=== PATIENT | female | born 1985 | race Caucasian/White ===

== ENCOUNTER 2024-06-26 05:44 | Day surgery (SDC) | payer OTHER, SELFPAY ==
[2024-06-26] VITALS (8 sets, daily range): BP systolic 113–127; BP diastolic 66–89; PULSE 64–95; RESP 16–24; TEMP 36.1–36.8; O2SAT 99–100; BMI 27.0
[2024-06-26] MEDS: Lactated Ringers 1,000 ML 15 ML IV (06:32)
--- NOTE | 2024-06-26 06:48 | PRE.ANES_ITS ---
ASA Classification* ASA Classification ASA Classification: 2 Assessment & Plan Anesthesia* Anesthesia Assessment Anesthesia Assessment: Discussed sedation and/or anesthesia options, risks, benefits, and alternatives with patient/parents/legal guardian/POA. Questions invited. The patient/parents/legal guardian/POA seems to understand and agrees to proceed with anesthesia plan. Reviewed the physical assessment, medical history, allergy history and patient home medications list prior to surgery/procedure/anesthetic and documented any changes. Performed airway and anesthesia risk assessments. Anesthesia Type Anesthesia Type: General Anesthesia Focused Assessment* Temperature: 98.1 F Pulse Rate: 64 Blood Pressure: 113/78 Respiratory Rate: 16 Pulse Ox: 100 Airway Assessment Mouth opens: >3 cm Mallampati Score: II Focused Labs Anesthesia Preop lab: CBC CHEMISTRY COAG Urine Test Pending 06/26/24 06:10 Pre-Assessment Diagnosis/Proposed Procedure Planned Operative Procedure(s): EXCISION GROIN HYDRADENITIS BILAT WITH ALLOGRAFT PLACEMENT Anesthesia History Anesthesia History - sterile technician: Anesthesia History - sterile technician Hx Hospitalization No 06/06/24 10:09 Any Problems With Anesthesia No 06/06/24 10:09 Cholinesterase deficiency No 06/06/24 10:09 You/Your Family Experience No 06/06/24 10:09 fever (hyperthermia) with Relationship Recent Exposure to Contagious No 06/26/24 06:23 Disease Does patient have nerve No 06/06/24 10:09 stimulator Patient instructed to have device shut off --Does patient have Pacemaker No 06/26/24 06:23 or ICD? When Was Last Pacemaker Check QUESTION #4 FULL TEXT: You/Your Family Experience fever (hyperthermia) with Anesthesia Last Oral Intake Last Oral intake: Last Oral Intake NPO since 00:00 06/26/24 06:23 Meds taken in AM with sips of water? Meds patient instructed to take am of surgery PONV PONV - sterile technician: PONV - sterile technician Female Yes 06/06/24 10:09 HX of Motion Sickness No 06/06/24 10:09 HX of N/V After Surgery No 06/06/24 10:09 Non-Smoker Yes 06/06/24 10:09 Duration of Surgery greater Yes 06/06/24 10:09 than 60 minutes Number of Risk Factors 3 06/06/24 10:09 PONV Score Moderate Risk 06/06/24 10:09 Height & Weight Height & Weight: Anesthesia: Height & Weight Height 5 ft 9 in 06/26/24 06:23 Weight: 83.007 kg 06/26/24 06:23 Body Mass Index (BMI) 27.0 06/26/24 06:23 Respiratory Assessment Respiratory Assessment - sterile technician: Respiratory Tract Infection Hx - sterile technician Hx Respiratory Tract Infection No 06/06/24 10:09 STOP Sleep Apnea STOP Sleep Apnea - sterile technician: STOP Sleep Apnea - sterile technician Hx Hypertension No 06/06/24 10:09 Hx Sleep Apnea No 06/06/24 10:09 CPAP BIPAP Do you snore loudly (louder Yes 06/06/24 10:09 than talking or can be heard Do you often feel tired/ No 06/06/24 10:09 fatigued/ sleepy during daytime? Has anyone observed you stop No 06/06/24 10:09 breathing during sleep? STOP Results Negative 06/06/24 10:09 QUESTION #5 FULL TEXT : Do you snore loudly (louder than talking or can be heard through closed doors)? Tobacco Use History Tobacco Use History - sterile technician: Tobacco Use History - sterile technician Tobacco Use Smoking Status Never smoker 06/06/24 10:09 Hx Tobacco Use No 06/06/24 10:09 Years Smoking Packs Smoked per Day Smoking Cessation Date was within the last 15 years Hx Smoking Cessation Date Hx Smoking Cessation Counseling Hematologic Medial History Hematologic Hx - sterile technician: Hematologic Medical Hx - wealth management manager Hx of Blood Transfusion No 06/06/24 10:09 Hx of Transfusion in last 3 No 06/06/24 10:09 Months Date of Last Transfusion (if within last 3 months) Ever experience any problems No 06/06/24 10:09 with transfusion(s)? Specify any problems Hx of Preganancy in last 3 No 06/06/24 10:09 Months Nurse Filling Out Transfusion DSCHRIBER 06/06/24 10:09 & Questions: Date: 06/06/24 06/06/24 10:09 Time: 10:10 06/06/24 10:09 Patient unable to answer at this time (ie. confused, unrespo /Reproduction History /Reproductive History - sterile technician: /Reproductive Hx- sterile technician Hx Now No 06/06/24 10:09 Gestational Age (in weeks): EDC: Hx Hx Para Hx Section SAB No 06/06/24 10:09 Active Medications Active Medications: Current Medications Generic Name Dose Route Start Last Admin Trade Name Freq PRN Reason Stop Dose Admin Cefazolin Sodium 2 gm/ N/A 20 mls @ 400 mls/hr 06/26/24 07:30 IV 06/26/24 07:32 PREOP ONE Lactated Ringer's 1,000 mls @ 15 mls/hr 06/26/24 06:15 06/26/24 06:32 IV 07/01/24 19:34 15 mls/hr .Q48H MOSES Administration Protocol ON LICENSE OF [facility] Medical History Psoriasis Alcohol use Back pain Non-smoker Hx of hidradenitis suppurativa Home Medications ?Medication ?Instructions ?Recorded ?Last Taken ?Type secukinumab 300 mg/2 mL (150 300 mg subcut QMONTH 04/25/24 Unknown History mg/mL) subcutaneous pen injector (Cosentyx UnoReady Pen) triprolidine HCl 2.5 mg tablet 2.5 mg PO PRN PRN ALLERGIES 04/25/24 Unknown History (Flonase Nighttime Allergy Relief) Allergy/AdvReac Type Severity Reaction Status Date / Time adhesive tape (tape) Allergy Mild Itching Verified 06/26/24 06:21 Family History Father Cancer High cholesterol Grandmother Cancer Mother Hypertension Surgical History Hx of hammer toe correction Social History Smoking Status: Never smoker alcohol intake: current substance use type: does not use additional social history: denies vaping, denies marijuana use, denies edibles, denies history blood clotting disorder denies aspirin use uses ibuprofen as needed Review of Systems (Anesthesia) ROS Narrative System reviewed and no additional complaints, except as documented.
[2024-06-26 06:54] LABS: Internal QC Validated? YES +Cl - CLEAR BKGD; Pregnancy, Urine Negative Negative; Record Kit Lot#,Urine Preg 869294
--- NOTE | 2024-06-26 07:30 | HID_PTH ---
PATIENT: SYDNEE JOH[place]ON [place] [facility] [id number] AGE/SX: 39/F ROOM: RE06/26/[address]: Dr. Sushil Guthrie MD : 1985 BED: DIS: 06/26/2024 SPEC #: [id number] RECD: 06/26/24 13:24 STATUS: SASHA BRITTANY #: [id number] GEO: 06/26/24 07:[address]: Sushil Guthrie DEPT: SURGICAL PATHOLOGY RECD BY: Floyd Hernandez ENTERED: 06/26/24 14:40 SP TYPE: Sarahradenit ROSIE DR: No Primary Care Phys Tissues: A - Inguinal region, NOS B - Inguinal region, NOS C - Inguinal region, NOS Procedures: Surgery Specimen Level IV HEADER OPERATION: Excision groin hidradenitis bilateral with allograft placement PRE-OP DIAGNOSIS: Hidradenitis suppurativa TISSUE SUBMITTED: A- Right groin hidradenitis, B- Left groin hidradenitis, C- Left groin hidradenitis- inferior MICROSCOPIC DIAGNOSIS A. Right groin hidradenitis, excision: Skin with underlying tissue with acute and chronic inflammation, granulation tissue reaction and follicular cyst formation, consistent with hidradenitis. B. Left groin hidradenitis, excision: A piece of skin with underlying tissue with acute and chronic inflammation, follicular cyst formation, consistent with hidradenitis. C. Left groin hidradenitis inferior, excision: A piece of skin with underlying tissue with acute and chronic inflammation, follicular cyst formation, consistent with hidradenitis. 06/27/2024 MICROSCOPIC DESCRIPTION Slides are reviewed. GROSS DESCRIPTION A. Received in fixative is one container labeled with the patient's name and designated Right groin hidradenitis. The specimen consists of a piece of morales-white skin with underlying tissue measuring 5.0 x 1.7 x 1.0cm. Sections do not reveal any mass lesions. Credit Verification Clerk sections are submitted in two cassettes. B. Received in fixative is one container labeled with the patient's name and designated Left groin hidradenitis. The specimen consists of a piece of skin with underlying tissue measuring 3.0 x 1.0cm and up to 1.5cm in thickness. The specimen is bisected and submitted entirely in one cassette. C. Received in fixative is one container labeled with the patient's name and designated Left groin hidradenitis -inferior. The specimen consists of a piece of skin with underlying tissue measuring 2.2 x 1.0cm and up to 0.6cm in thickness. The skin piece is serially sectioned. Also present in the container is a piece of adipose tissue measuring 1.0 x 0.3 x 0.2cm. The entire specimen is submitted in one cassette. SJ 06/26/2024 TC:3 CPT:44721p5
--- NOTE | 2024-06-26 07:34 | OP.PCM_ITS ---
Problems Associated Problem List Diagnoses (1) Hidradenitis suppurativa: Operative Report (Standard) Operative Information Surgery/Procedure Performed: 1) Right groin/thigh hidradenitis suppurativa excision, 6.5 x 2 cm (CPT: 03850) 2) Left groin/thigh hidradenitis suppurativa excision, 3 x 1.5 cm (26952) 3) Left groin/thigh hidradenitis suppurativa excision, 4 x 1.5 cm (74420) 4) Placement of dermal substitute, 23.5 cm^2 (CPT 06302) Surgeon: Sushil Guthrie Date of Procedure: 06/26/24 Procedure Start Time: 08:15 Procedure Stop Time: 08:47 Pre-Operative Diagnosis: hidradenitis suppurativa (HS) bilateral groin/thigh Post-Operative Diagnosis: Same Select all DRAINS/GRAFTS/IMPLANTS that apply: Tissue (Allograft ) Tissue details: [employer]osource [place] (REF [id number], LOT [id number]) Cryopreserved. 28 May 2027 exp. Type of Anesthesia: General/Supplemental (30 cc of 0.25% Marcaine with 1:200,000 epinephrine) Estimated Blood Loss: 5 cc Fluids Replaced: 800 cc Specimen collected: Yes Description of specimen(s) removed: HS excisions for examination for pathology, as well as cultures from the tracts on both sides. Description of surgery: Indications: Sarah Canela is a 39-year-old female who has been dealing with hidradenitis suppurativa (HS) for which medical management has been exhausted (she has been on Cosentyx and following regularly with the dermatology group in [facility]). Shee was referred to me for excision of persistent Azul grade 2 sinus tracts in her groin that are painful. She understood the risks, benefits, and alternatives to the procedure and wanted to proceed with excision of the hidradenitis with placement of a dermal substitute. Procedure details: Patient was correctly identified in preoperative holding and the lesions were marked with a female inspecting machine adjuster present. The patient and I identified the specific areas of concern in the right groin ( 1) and in the left groin (2). These areas were marked specifically for excision. The patient was then taken back to the operating room where she was administered general anesthesia and placed in the lithotomy position and prepped and draped in sterile fashion. A timeout was performed. The elliptical areas of planned excision were anesthetized with 30 cc of 0.25% Marcaine with 1-200,000 epinephrine. This was given time to take effect, and then a 10 blade scalpel was used to excise the skin around the HS tracts and scars. There was fluid oozing from the central sinuses and a hemostat was used to enter the sinuses to get the proper plane so as to provide a full-thickness excision of the HS but preserve the underlying deep nerves and lymphatics in the deeper plane that was not involved. Once the full-thickness excision with a scalpel and Bovie was performed, these areas, which included the sinus tracts and fluid, were sent to pathology. The bases of the wounds were cultured and separate right and left cultures were sent. The wounds were then irrigated with copious amounts of normal saline as well as Irrisept. Hemostasis was obtained with Bovie electrocautery. The total excisions were right groin 6.5 x 2 cm, left groin 4 x 1.5 cm, and left groin 3 x 1.5 cm. We then placed allograft (which was meshed) into the wound beds and sutured it with 4-0 Chromic Gut suture. This was a total dermal substitute placement of 23-1/2 cm?. Xeroform Kerlix and mesh panties were then applied and the patient was awakened and taken the PACU in stable condition. Postoperative plan: She will continue wet-to-dry dressings over the allograft for the next 1 to 2 weeks and then the allograft will be removed in clinic. The allograft was for initial pain control and to allow sufficient drainage. Follow-up cultures. I will see her in the wound care center on Sunday, 30 June 2024. Surgical Findings: 3 separate areas of hidradenitis with tracts and scars and purulent drainage. Hotel Recreational Facilities Manager cotton bag sewer: Yes Molded Rubber Goods Cutter: Wesley Wallace Tasks completed by first crusher: Closing and Retracting Complications Complications: No Admit VTE Documentation VTE Mechan Device Prophylaxis: SCD's
--- NOTE | 2024-06-26 07:34 | HP.PCM.SX_ITS ---
HPI - General HPI Narrative Sarah Canela is a 38-year-old female who is otherwise healthy and has hidradenitis suppurativa (HS). She was referred to me by the [facility] dermatology team for evaluation of surgical management. She has been taking Cosentyx (secukinumab) for medical management of the HS, for which she just finished a 5-week course for the loading dose, and is now on her monthly dosing. She noted a 50% improvement with the Cosentyx as far. She is not on any chronic suppressive antibiotics. She does not smoke The patient reports that they do not have any personal or family history of bleeding or clotting disorders. She does not take any medicines every day. She is quite active and does serious gravel road cycling 3 times per week with her . Of note when she was living in [place] her PHYSICAL MEDICINE TEACHER performed 3 separate incision and drainage procedures of labial hidradenitis with significant improvement thereafter. CURRENT ENCOUNTER, 30 May 2024: Patient reports that she has been compliant with her Cosentyx and continues to follow with dermatology for medical management. She has persistent inguinal/groin hidradenitis that she would like treated. It continues to drain. She is an avid cyclist and is ready to do surgery as the cycling season is no longer is busy. 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 Current Encounter (DATE OF SURGERY H&P UPDATE): I saw and examined the patient this morning in pre-operative holding. We marked the areas of concern together and were in agreement. I showed her the planned incisoins. We discussed risks and benefits of today's surgery and they would like to proceed. NO CHANGE in health history since last seen and evaluated. Ready to proceed with surgery. [facility] Medical History Psoriasis Alcohol use Back pain Non-smoker Hx of hidradenitis suppurativa Home Medications ?Medication ?Instructions ?Recorded ?Last Taken ?Type secukinumab 300 mg/2 mL (150 300 mg subcut QMONTH 04/25/24 Unknown History mg/mL) subcutaneous pen injector (Cosentyx UnoReady Pen) triprolidine HCl 2.5 mg tablet 2.5 mg PO PRN PRN ALLERGIES 04/25/24 Unknown History (Flonase Nighttime Allergy Relief) Allergy/AdvReac Type Severity Reaction Status Date / Time adhesive tape (tape) Allergy Mild Itching Verified 06/26/24 06:21 Family History Father Cancer High cholesterol Grandmother Cancer Mother Hypertension Surgical History Hx of hammer toe correction Social History Smoking Status: Never smoker alcohol intake: current substance use type: does not use additional social history: denies vaping, denies marijuana use, denies edibles, denies history blood clotting disorder denies aspirin use uses ibuprofen as needed Vital Signs Vital Signs Vital Signs: 06/26/24 06:23 06/26/24 06:23 06/26/24 06:48 Temperature 98.1 F 98.1 F Temperature Source Temporal Pulse Rate 64 64 Respiratory Rate 16 16 Respiratory Pattern Normal Blood Pressure 113/78 113/78 Blood Pressure Mean 89 Blood Pressure Source Monitor Blood Pressure Position Semi-Fowlers Blood Pressure Location Left Arm Pulse Ox 100 100 Oxygen Delivery Method Room Air Weight Weight: 183 lb Body Mass Index (BMI) 27.0 Physical Exam Narrative Draining sinuses 2/2 HS in right groin/medial thigh x 1 and left groin/medial thigh x 2 Female oyster culler present during our marking The sinuses were draining. Const oriented x3 and no apparent distress Results Lab / Micro Data Labs: Laboratory Results - last 24 hr 06/26/24 06:10: Urine Test Negative Assessment & Plan Assessment/Plan (1) Hidradenitis suppurativa: PLAN: Today I again talked the patient extensively about the risks of surgery, including bleeding, infection, poor scaring/contracture and pull of the scar on her labia/vulva leading to issues, damage to surrounding structures (lymphedema 2/2 lymphatic injury, nerve pain or numbness 2/2 nerve transection), surgical site dehiscence and wound formation, need for wound care (placement of allograft after the surgery with dressing changes over top), need for repeat operations, failure to obtain the desired result, DVT/PE (Caprini score is 3), and the risks of anesthesia including . The benefits and alternatives of this surgery were also discussed. All of their questions were answered, and they agreed to proceed with surgery. All questions answered. Plan for excision of bilateral groin hydradenitis with allograft placement.
[2024-06-26] MEDS: Cefazolin 2 GM in Syringe IV (07:45)
[2024-06-26] MEDS: Bupiv/Epi 0.25% 30 ML Vial (08:29)
--- NOTE | 2024-06-26 08:56 | PCM.POST.ANE ---
Anesthesia: Postop Eval I Current Vital Signs Temperature: 97 F Pulse Rate: 90 Blood Pressure: 127/89 Respiratory Rate: 16 Pulse Ox: 99 Oxygen Delivery Method: Room Air Assessment Airway patent: Yes Spontaneous unlabored respirations: Yes Mental status: Awake and Calm nausea: No Vomiting: No Anesthesia Complication: No Fluid Hydration Crystalloid volume administer (ml): 800 Total IV fluid infused: 800 Progress Note Anesthesia document: Postop Eval 1 completed: Yes
--- NOTE | 2024-06-26 15:14 | POSTOPAN2_ITS ---
Anesthesia Postop Eval I Sum Postop Eval Completion status Anesthesia document: Postop Eval 1 completed: Yes Anesthesia Postop Eval I Summary Anesthesia Postop Eval I Summary: Anesthesia Postop Eval I: Assessment Summary Airway patent Yes 06/26/24 08:57 ROCKET PROPELLANT PLANT SUPERVISOR.MDOT Spontaneous unlabored Yes 06/26/24 08:57 ROCKET PROPELLANT PLANT SUPERVISOR.MDOT respirations Mental status Awake,Calm 06/26/24 08:57 ROCKET PROPELLANT PLANT SUPERVISOR.MDOT nausea No 06/26/24 08:57 ROCKET PROPELLANT PLANT SUPERVISOR.MDOT Vomiting No 06/26/24 08:57 ROCKET PROPELLANT PLANT SUPERVISOR.MDOT Anesthesia Postop Eval I: Fluid Summary Crystalloid volume administer 800 06/26/24 08:57 ROCKET PROPELLANT PLANT SUPERVISOR.MDOT (ml) Colloids volume administered ( ml) Blood Product volume administered (ml) Total IV fluid infused 800 06/26/24 08:57 ROCKET PROPELLANT PLANT SUPERVISOR.MDOT Anesthesia Postop Eval I: Summary Notes Anesthesia Complication No 06/26/24 08:57 ROCKET PROPELLANT PLANT SUPERVISOR.MDOT Anesthesia Complication Comment: Post-operative progress note Anesthesia: Postop Eval II Evaluation Mental status: Awake and Calm Pain Level: 1 nausea: No Vomiting: No Complications Anesthesia Complication: No
--- NOTE | 2024-06-26 15:14 | PCM.POSTANE2 ---
Anesthesia Postop Eval I Sum Postop Eval Completion status Anesthesia document: Postop Eval 1 completed: Yes Anesthesia Postop Eval I Summary Anesthesia Postop Eval I Summary: Anesthesia Postop Eval I: Assessment Summary Airway patent Yes 06/26/24 08:57 KITCHEN STEWARD/[email or web address] Spontaneous unlabored Yes 06/26/24 08:57 KITCHEN STEWARD/STEWARDESS.MDOT respirations Mental status Awake,Calm 06/26/24 08:57 KITCHEN STEWARD/[email or web address].MDOT nausea No 06/26/24 08:57 KITCHEN STEWARD/STEWARDESS.MDOT Vomiting No 06/26/24 08:57 KITCHEN STEWARD/[email or web address].MDOT Anesthesia Postop Eval I: Fluid Summary Crystalloid volume administer 800 06/26/24 08:57 KITCHEN STEWARD/[email or web address].MDOT (ml) Colloids volume administered ( ml) Blood Product volume administered (ml) Total IV fluid infused 800 06/26/24 08:57 KITCHEN STEWARD/[email or web address].MDOT Anesthesia Postop Eval I: Summary Notes Anesthesia Complication No 06/26/24 08:57 KITCHEN STEWARD/[email or web address].MDOT Anesthesia Complication Comment: Post-operative progress note Anesthesia: Postop Eval II Evaluation Mental status: Awake and Calm Pain Level: 1 nausea: No Vomiting: No Complications Anesthesia Complication: No
== END 2024-06-26 10:18 | disposition home or self-care (01) ==
LOC: SDC 05:44 → AC 05:46
PROVIDERS: Anesthesiology; Referring Provider Surgery Plastic and Reconstructive Surgery; Visit Provider Surgery Plastic and Reconstructive Surgery
PROC: (CPT 11462; principal; 2024-06-26 07:15)
DX: L73.2 Hidradenitis suppurativa (principal)
CPT/HCPCS: 11462; 15271; 81025; 87070; 87075; 87077; 87186; 87205; 88305; J7120; J2405

== ENCOUNTER 2024-06-30 13:12 | Outpatient (RCR) | payer OTHER, SELFPAY ==
[2024-06-30 13:25] VITALS: BP 111/56; PULSE 67; RESP 18; TEMP 36.5; BMI 26.6
--- NOTE | 2024-06-30 14:31 | PCM.WC.PN ---
History of Present Illness Date of Service: 06/30/24 Subjective Subjective Doing well post-operatively (POD 5) Pain controlled. Complaint with dressing changes over the allograft. No drainage. Feels better. 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 Beefy red granulation between fenestrations in the sutured allograft. No signs of infection, no induration. Healing well. No ttp Const alert and oriented x3 Debridement Note Debridement Note Post-Debridement Measurements and Additional Note: Post-Debridement Measurements/Treatment - Nurse 1 - General Ulcer Assessment Start: 06/30/24 13:25 Freq: Status: Active Protocol: ADAL.DIOGENES Activity Type Activity Date Activity User E-sign Co-sign Detail Recorded Client Recorded Date Recorded By Document 06/30/24 13:25 [facility] [id number] 06/30/24 13:39 [facility] 06/30/24 13:25 - Today's Visit Information Type of service Initial Visit Arrival Mode Ambulatory Patient Identification Verified (Name & Yes ) Height and Weight Height 5 ft 9 in Weight 180 lb Weight in Pounds 180.0 lbs Weight Measurement Method Estimated by Patient Body Mass Index (BMI) 26.6 BMI Classification Overweight BSA - Marla 1.98 Vital Signs Temperature (97.8 F-99.1 F) 97.7 F L Temperature Source Temporal Pulse Rate (60-100) 67 Pulse Location Monitor Respiratory Rate (12-18) 18 Respiratory rate source Observation Oxygen Delivery Method Room Air Blood Pressure (90/60-120/80) 111/56 L Blood Pressure Mean (mm Hg) 74 Source Monitor Position Semi-Fowlers Blood Pressure Location Left Arm History Since Last Visit- (Skip if this is Patient's initial visit) Left Footwear Regular Shoe Right Footwear Regular Shoe Pain Scale: 0-10 Numeric Is Patient Pain Free? No groin -Description Aching -Alleviating Factors/Interventions Medication WC - Nurse 1 - General Ulcer Measurement Start: 06/30/24 13:25 Freq: Status: Active Protocol: Activity Type Activity Date Activity User E-sign Co-sign Detail Recorded Client Recorded Date Recorded By Document 06/30/24 13:25 [facility] [id number] 06/30/24 13:39 [facility] 06/30/24 13:25 Wound Center Nurse 1 #3 LT LAT GROIN -Current Size (cm) - Length 3.4 -Current Size (cm) - Width 0.5 -Current Size (cm) - Depth 0.3 -Total Square Cm 1.70 -Date of Last Picture (Recall this 06/30/24 field) -Exudate Amt Small -Exudate Type Serosanguineous -Wound Margin Distinct, Outline Attached -Granulation Amt Large (67-100%) -Granulation Quality Red -Texture (Betty-wound Skin Appearance) Assessed -Moisture (Betty-wound Skin Appearance) Assessed -Color (Betty-wound Skin Appearance) Assessed -Temperature (Betty-wound Skin No Abnormality Appearance) (Pt Warm) -Tenderness on Palpation (Betty-wound No Skin Appearance) -Ulcer Cleansing Soap and Water -Foul Odor after Cleansing No -Anesthetic Used 5% Lidocaine Gel #2 LT MED GROIN -Current Size (cm) - Length 1.5 -Current Size (cm) - Width 1.1 -Current Size (cm) - Depth 0.2 -Total Square Cm 1.65 -Date of Last Picture (Recall this 06/30/24 field) -Exudate Amt Small -Exudate Type Serosanguineous -Wound Margin Distinct, Outline Attached -Granulation Amt Large (67-100%) -Granulation Quality Red -Texture (Betty-wound Skin Appearance) Assessed -Moisture (Betty-wound Skin Appearance) Assessed -Color (Betty-wound Skin Appearance) Assessed -Temperature (Betty-wound Skin No Abnormality Appearance) (Pt Warm) -Tenderness on Palpation (Betty-wound No Skin Appearance) -Ulcer Cleansing Soap and Water -Foul Odor after Cleansing No -Anesthetic Used 5% Lidocaine Gel #1 RT GROIN -Current Size (cm) - Length 6 -Current Size (cm) - Width 0.1 -Current Size (cm) - Depth 0.2 -Total Square Cm 0.6 -Date of Last Picture (Recall this 06/30/24 field) -Exudate Amt Small -Exudate Type Serosanguineous -Wound Margin Distinct, Outline Attached -Granulation Amt Large (67-100%) -Granulation Quality Red -Texture (Betty-wound Skin Appearance) Assessed -Moisture (Betty-wound Skin Appearance) Assessed -Color (Betty-wound Skin Appearance) Assessed -Temperature (Betty-wound Skin No Abnormality Appearance) (Pt Warm) -Tenderness on Palpation (Betty-wound No Skin Appearance) -Ulcer Cleansing Soap and Water -Foul Odor after Cleansing No -Anesthetic Used 5% Lidocaine Gel WC - Nurse 2 - General Ulcer CM Notes Start: 06/30/24 13:25 Freq: Status: Active Protocol: Activity Type Activity Date Activity User E-sign Co-sign Detail Recorded Client Recorded Date Recorded By Document 06/30/24 13:56 [id number] 06/30/24 13:58 LOGAN 06/30/24 13:56 Wound Center Nurse 2 #3 LT LAT GROIN -Correct Patient No -Correct Side, Site, Position No -Correct Procedure No -Procedure Performed No -Wound/Ulcer Outcome Not Healed #2 LT MED GROIN -Correct Patient No -Correct Side, Site, Position No -Correct Procedure No -Procedure Performed No -Wound/Ulcer Outcome Not Healed #1 RT GROIN -Correct Patient No -Correct Side, Site, Position No -Correct Procedure No -Procedure Performed No -Wound/Ulcer Outcome Not Healed Pain Scale: 0-10 Numeric Is Patient Pain Free? Yes Assessment/Plan Assessment/Plan (1) Hidradenitis suppurativa: CODE(S): L73.2 - Hidradenitis suppurativa PLAN: Doing well Plan to remove allograft next week in clinic and continue Aquacel Ag over the wounds daily for now Multiple organisms seen in cultures, including anaerobes. Susceptible to ampicillin Prescribed course of Augmentin. No concerns today clinically for infection, however. F/u in 1 week
--- NOTE | 2024-07-01 11:11 | WC ---
PHOTO 06/30/24 RIGHT CATHIIN
--- NOTE | 2024-07-01 11:12 | WC ---
PHOTO 07/01/24 LEFT LATERAL GROIN
--- NOTE | 2024-07-01 11:15 | WC ---
PHOTO 06/30/24 Frederick SOTO
== END 2024-07-05 23:59 | disposition home or self-care (01) ==
LOC: WC 13:12
PROVIDERS: Referring Provider Surgery Plastic and Reconstructive Surgery; Visit Provider Surgery Plastic and Reconstructive Surgery
DX: L73.2 Hidradenitis suppurativa (principal); Z79.899 Other long term (current) drug therapy
CPT/HCPCS: 99213; G0463

== ENCOUNTER 2024-07-28 14:00 | Outpatient (RCR) | payer OTHER, SELFPAY ==
[2024-07-06 00:34] VITALS: BP 111/56; PULSE 67; RESP 18; TEMP 36.5; BMI 26.6
[2024-07-07 10:36] VITALS: BP 123/85; PULSE 75; RESP 18; TEMP 36.2; BMI 26.6
--- NOTE | 2024-07-07 13:38 | PN.PCM_ITS ---
<Statement entered by Sushil Guthrie MD - 07/08/24 06:50> I have personally performed a face to face assessment of the patient and have reviewed the KASSI Note.
--- NOTE | 2024-07-07 13:38 | PCM.WC.PN ---
History of Present Illness Date of Service: 07/07/24 Chief Complaint: Bilateral groin/proximal thigh wounds from hidradenitis excision History of Wound: 39 -year-old female who is otherwise healthy and has hidradenitis suppurativa (HS). She was referred to me by the [facility] dermatology team for evaluation of surgical management. She has been taking Cosentyx (secukinumab) for medical management of the HS, for which she just finished a 5-week course for the loading dose, and is now on her monthly dosing. She noted a 50% improvement with the Cosentyx as far. She is not on any chronic suppressive antibiotics. Of note when she was living in [place] her SECURITY MESSENGER performed 3 separate incision and drainage procedures of labial hidradenitis with significant improvement thereafter. Surgery 06/26/24 Right groin/thigh hidradenitis suppurativa excision, 6.5 x 2 cm and Left groin/thigh hidradenitis suppurativa excision, 3 x 1.5 cm and Left groin/thigh hidradenitis suppurativa excision, 4 x 1.5 cm and Placement of dermal substitute, 23.5 cm^2. She denies any fever, chill, nausea or vomiting. Progress of Wound: She states her pain is well controlled. She has been having some drainage from the wound on the right groin/thigh. She denies issues with her dressing changes. Objective Data Objective Data Vital Signs: Vital Signs Temp Pulse Resp BP O2 Del Method 97.2 F L 75 18 123/85 H Room Air 07/07/24 10:36 07/07/24 10:36 07/07/24 10:36 07/07/24 10:36 07/07/24 10:36 Oxygen Delivery Method Room Air Weight: 180 lb Body Mass Index (BMI) 26.6 Charges/Coding Procedures Integumentary 111xxx-113xx: 53384 Global Visit Physical Exam Narrative Removed the allograft today. Wounds are nice beefy pink color. Decreased depth. Betty wound is clear. Debridement Note Debridement Note Wound debrided: Right groin, Left groin medial and lateral wounds Wound Grade/Stage: Stage 3 Type of Debridement: Excisional debridement Anesthesia Used: 5% Lidocaine Gel and Cetacaine Depth: Down to and including healthy tissue and in the subcutaneous layer Percentage of wound debrided: 100 Instrument Used: 5mm curette and Forceps (scissors) Tissue Removed: Non viable tissue and slough. Removed remaining allograft. Severity: Fat Layer Exposed Amount of bleeding with debridement: Mild Bleeding Controlled with: Pressure and Compression and gauze Patient tolerated procedure: Patient tolerated procedure well Post-Debridement Measurements and Additional Note: Post-Debridement Measurements/Treatment - Nurse 1 - General Ulcer Assessment Start: 07/07/24 10:36 Freq: Status: Active Protocol: XIN Activity Type Activity Date Activity User E-sign Co-sign Detail Recorded Client Recorded Date Recorded By Document 07/07/24 10:36 KW [id number] 07/07/24 10:54 KW 07/07/24 10:36 WC - Today's Visit Information Type of service Follow-up Visit (Physician/CHICKEN VACCINATOR ) Arrival Mode Ambulatory Patient Identification Verified (Name & Yes ) Height and Weight Body Mass Index (BMI) 26.6 BMI Classification Overweight Vital Signs Temperature (97.8 F-99.1 F) 97.2 F L Temperature Source Temporal Pulse Rate (60-100) 75 Pulse Location Monitor Respiratory Rate (12-18) 18 Respiratory rate source Observation Oxygen Delivery Method Room Air Blood Pressure (90/60-120/80) 123/85 H Blood Pressure Mean (mm Hg) 97 Source Monitor Position Semi-Fowlers Blood Pressure Location Left Arm History Since Last Visit- (Skip if this is Patient's initial visit) Have you changed medications since your No last visit? Any new allergies or adverse reactions No Had a fall/change in ADL's that may No increase risk of falls Signs or symptoms of abuse and/or No neglect since last visit Have you been in the hospital since your No last visit? Has dressing in place as prescribed Yes Has compression in place as prescribed N/A Has offloadiing in place as prescribed N/A Experienced any changes in pain level or No management Left Footwear Regular Shoe Right Footwear Regular Shoe Pain Scale: 0-10 Numeric Is Patient Pain Free? Yes - Nurse 1 - General Ulcer Measurement Start: 07/07/24 10:36 Freq: Status: Active Protocol: Activity Type Activity Date Activity User E-sign Co-sign Detail Recorded Client Recorded Date Recorded By Document 07/07/24 10:36 KW [id number] 07/07/24 10:54 KW 07/07/24 10:36 Wound Center Nurse 1 #3 LT LAT GROIN -Current Size (cm) - Length 3.3 -Current Size (cm) - Width 1 -Current Size (cm) - Depth 0.4 -Total Square Cm 3.3 -Date of Last Picture (Recall this 07/07/24 field) -Exudate Amt Small -Exudate Type Serosanguineous -Wound Margin Distinct, Outline Attached -Granulation Amt Medium (34-66%) -Granulation Quality Red -Necrosis Amt Medium (34-66%) -Necrotic Tissue Type Adherent Slough -Texture (Betty-wound Skin Appearance) Assessed -Moisture (Betty-wound Skin Appearance) Assessed -Color (Betty-wound Skin Appearance) Assessed -Temperature (Betty-wound Skin No Abnormality Appearance) (Pt Warm) -Tenderness on Palpation (Betty-wound No Skin Appearance) -Ulcer Cleansing Soap and Water -Foul Odor after Cleansing No -Anesthetic Used 5% Lidocaine Gel #2 LT MED GROIN -Current Size (cm) - Length 1.7 -Current Size (cm) - Width 0.8 -Current Size (cm) - Depth 0.4 -Total Square Cm 1.36 -Date of Last Picture (Recall this 07/07/24 field) -Exudate Amt Small -Exudate Type Serosanguineous -Wound Margin Distinct, Outline Attached -Granulation Amt Large (67-100%) -Granulation Quality Red -Necrosis Amt Small (1-33%) -Necrotic Tissue Type Adherent Slough -Texture (Betty-wound Skin Appearance) Assessed -Moisture (Betty-wound Skin Appearance) Assessed -Color (Betty-wound Skin Appearance) Assessed -Temperature (Betty-wound Skin No Abnormality Appearance) (Pt Warm) -Tenderness on Palpation (Betty-wound No Skin Appearance) -Ulcer Cleansing Soap and Water -Foul Odor after Cleansing No -Anesthetic Used 5% Lidocaine Gel #1 RT GROIN -Current Size (cm) - Length 5 -Current Size (cm) - Width 1 -Current Size (cm) - Depth 0.4 -Total Square Cm 5 -Date of Last Picture (Recall this 07/07/24 field) -Exudate Amt Small -Exudate Type Serosanguineous -Wound Margin Distinct, Outline Attached -Granulation Amt Small (1-33%) -Granulation Quality Red -Necrosis Amt Large (67-100%) -Necrotic Tissue Type Adherent Slough -Texture (Betty-wound Skin Appearance) Assessed -Moisture (Betty-wound Skin Appearance) Assessed -Color (Betty-wound Skin Appearance) Assessed -Temperature (Betty-wound Skin No Abnormality Appearance) (Pt Warm) -Tenderness on Palpation (Betty-wound No Skin Appearance) -Ulcer Cleansing Soap and Water -Foul Odor after Cleansing No -Anesthetic Used 5% Lidocaine Gel WC - Nurse 2 - General Ulcer CM Notes Start: 07/07/24 10:36 Freq: Status: Active Protocol: Activity Type Activity Date Activity User E-sign Co-sign Detail Recorded Client Recorded Date Recorded By Document 07/07/24 11:03 LOGAN [id number] 07/07/24 11:10 LOGAN 07/07/24 11:03 Wound Center Nurse 2 #3 LT LAT GROIN -Time 11:04 -Correct Patient Yes -Correct Side, Site, Position Yes -Correct Procedure Yes -Procedure Performed Yes -Type of Procedure Debridement -Clinical Debridement Subcutaneous -Tissue Removed Subcutaneous -Post Debridement (cm) - Length 3.0 -Post Debridement (cm) - Width 1.2 -Post Debridement (cm) - Depth 0.2 -Total Square (Post) (cm) 3.60 -Area of Debridement (cm) - Length 3.0 -Area of Debridement (cm) - Width 1.2 -Total Square (Area) (cm) 3.60 -Tunneling No -Undermining/Tunneling No -Circular Undermining No -Wound/Ulcer Outcome Not Healed -Ulcer Cleansing Rinsed/ Irrigated with Saline -Foul Odor after Cleansing No -Bioengineered Tissue No -Bleeding Controlled with Pressure -Treatment Response Procedure Tolerated Well -Offloading No -Debridement - Subq, 1st 20sq cm No #2 LT MED GROIN -Time 11:04 -Correct Patient Yes -Correct Side, Site, Position Yes -Correct Procedure Yes -Procedure Performed Yes -Type of Procedure Debridement -Clinical Debridement Subcutaneous -Tissue Removed Subcutaneous -Post Debridement (cm) - Length 2.0 -Post Debridement (cm) - Width 1.4 -Post Debridement (cm) - Depth 0.4 -Total Square (Post) (cm) 2.80 -Area of Debridement (cm) - Length 2.0 -Area of Debridement (cm) - Width 1.4 -Total Square (Area) (cm) 2.80 -Tunneling No -Undermining/Tunneling No -Circular Undermining No -Wound/Ulcer Outcome Not Healed -Ulcer Cleansing Rinsed/ Irrigated with Saline -Foul Odor after Cleansing No -Bioengineered Tissue No -Bleeding Controlled with Pressure -Treatment Response Procedure Tolerated Well -Offloading No -Debridement - Subq, 1st 20sq cm No #1 RT GROIN -Time 11:07 -Correct Patient Yes -Correct Side, Site, Position Yes -Correct Procedure Yes -Procedure Performed Yes -Type of Procedure Debridement -Clinical Debridement Subcutaneous -Tissue Removed Subcutaneous -Post Debridement (cm) - Length 5.0 -Post Debridement (cm) - Width 1.5 -Post Debridement (cm) - Depth 0.3 -Total Square (Post) (cm) 7.50 -Area of Debridement (cm) - Length 5.0 -Area of Debridement (cm) - Width 1.5 -Total Square (Area) (cm) 7.50 -Tunneling No -Undermining/Tunneling No -Circular Undermining No -Wound/Ulcer Outcome Not Healed -Ulcer Cleansing Rinsed/ Irrigated with Saline -Foul Odor after Cleansing No -Bioengineered Tissue No -Bleeding Controlled with Pressure -Treatment Response Procedure Tolerated Well -Offloading No -Debridement - Subq, 1st 20sq cm Yes Pain Scale: 0-10 Numeric Is Patient Pain Free? Yes - Nurse 3 - General Ulcer D/C NN Start: 07/07/24 10:36 Freq: Status: Active Protocol: Activity Type Activity Date Activity User E-sign Co-sign Detail Recorded Client Recorded Date Recorded By Document 07/07/24 11:31 [id number] 07/07/24 11:31 07/07/24 11:31 Wound Care Center Nurse 3 #3 LT LAT GROIN -Primary Dressing Applied Aquacel AG 4x4 -Primary Dressing Covered/Secured with Dry Gauze -Aquacel AG 4x4 1 #2 LT MED GROIN -Other Dressing aquacel ag -Primary Dressing Covered/Secured with Dry Gauze #1 RT GROIN -Other Dressing aquacel ag -Primary Dressing Covered/Secured with Dry Gauze Pain Scale: 0-10 Numeric Is Patient Pain Free? Yes Assessment/Plan Assessment/Plan (1) Hidradenitis suppurativa: CODE(S): L73.2 - Hidradenitis suppurativa (2) Delayed surgical wound healing: CODE(S): T81.89XA - Other complications of procedures, not elsewhere classified, initial encounter PLAN: Plan She states she is doing well. Pain is controlled. Wound care - Aquacel-Ag daily and as needed covered with gauze. Wash the area daily with soap and water. Multiple organisms seen in cultures, including anaerobes. Susceptible to ampicillin. She completes the Augmentin today. Discussed plan of care with Dr. Guthrie. F/u in [address] Guthrie.
--- NOTE | 2024-07-08 15:03 | WC ---
PHOTO 07/07/24 RIGHT GROIN POST OP
--- NOTE | 2024-07-08 15:05 | WC ---
PHOTO 07/07/24 LEFT [facility] GROIN POST OP
--- NOTE | 2024-07-08 15:07 | WC ---
PHOTO 07/07/24 LT GROIN LATERAL POST OP
[2024-07-14 15:14] VITALS: BP 129/76; PULSE 67; RESP 15; TEMP 36.6; BMI 26.6
--- NOTE | 2024-07-14 17:12 | PCM.WC.PN ---
History of Present Illness Date of Service: 07/14/24 Chief Complaint: Bilateral groin/proximal thigh wounds from hidradenitis excision History of Wound: 39 -year-old female who is otherwise healthy and has hidradenitis suppurativa (HS). She was referred to me by the [facility] dermatology team for evaluation of surgical management. She has been taking Cosentyx (secukinumab) for medical management of the HS, for which she just finished a 5-week course for the loading dose, and is now on her monthly dosing. She noted a 50% improvement with the Cosentyx as far. She is not on any chronic suppressive antibiotics. Of note when she was living in [place] her TECHNICAL DEVELOPER performed 3 separate incision and drainage procedures of labial hidradenitis with significant improvement thereafter. Surgery 06/26/24 Right groin/thigh hidradenitis suppurativa excision, 6.5 x 2 cm and Left groin/thigh hidradenitis suppurativa excision, 3 x 1.5 cm and Left groin/thigh hidradenitis suppurativa excision, 4 x 1.5 cm and Placement of dermal substitute, 23.5 cm^2. She denies any fever, chill, nausea or vomiting. Progress of Wound: She states her pain is well controlled. She has been having some drainage from the wound on the right groin/thigh. She denies issues with her dressing changes. Current Encounter, 14 Jul 2024: Doing well. Pain controlled since removal of the allograft. no drainage. Finished Abx. Happy she went through with the surgery Objective Data Objective Data Vital Signs: Vital Signs Temp Pulse Resp BP O2 Del Method 98 F 67 15 129/76 H Room Air 07/14/24 15:14 07/14/24 15:14 07/14/24 15:14 07/14/24 15:14 07/14/24 15:14 Oxygen Delivery Method Room Air Weight: 180 lb Body Mass Index (BMI) 26.6 Charges/Coding Procedures Integumentary 111xxx-113xx: [id number] Lauryn subq tissue 20 sq cm/< Physical Exam Narrative Wounds with beefy red base. Right groin is 1.5 x 4.5 cm , left lateral is 1.5 x 3 cm , and left medial is 1 x 1 cm. No drainage. No new HS lesions. Wounds are nice beefy pink color. Decreased depth. Debridement Note Debridement Note Wound debrided: Bilateral groin/medial thigh Laterality: Not Applicable Type of Debridement: Excisional debridement Anesthesia Used: 4% Lidocaine Solution Depth: Down to and including healthy tissue and in the subcutaneous layer Percentage of wound debrided: 100 Instrument Used: 5mm curette Severity: Fat Layer Exposed Bleeding Controlled with: Pressure Patient tolerated procedure: Patient tolerated procedure well Post-Debridement Measurements and Additional Note: Post-Debridement Measurements/Treatment - Nurse 1 - General Ulcer Assessment Start: 07/07/24 10:36 Freq: Status: Active Protocol: [employer] Activity Type Activity Date Activity User E-sign Co-sign Detail Recorded Client Recorded Date Recorded By Document 07/07/24 10:36 KW [id number] 07/07/24 10:54 KW Document 07/14/24 15:14 BM [id number] 07/14/24 15:22 BM 07/07/24 07/14/24 10:36 15:14 - Today's Visit Information Type of service Follow-up Visit Follow-up Visit (Physician/PROFESSOR OF MUSICOLOGY (Physician/PROFESSOR OF MUSICOLOGY ) ) Arrival Mode Ambulatory Ambulatory Transfer Assistance None Patient Identification Verified (Name & Yes Yes ) Patient Requires Transmission-Based No Precautions Height and Weight Body Mass Index (BMI) 26.6 26.6 BMI Classification Overweight Overweight Vital Signs Temperature (97.8 F-99.1 F) 97.2 F L 98 F Temperature Source Temporal Temporal Pulse Rate (60-100) 75 67 Pulse Location Monitor Monitor Respiratory Rate (12-18) 18 15 Respiratory rate source Observation Observation Oxygen Delivery Method Room Air Room Air Blood Pressure (90/60-120/80) 123/85 H 129/76 H Blood Pressure Mean (mm Hg) 97 93 Source Monitor Monitor Position Semi-Fowlers Sitting Blood Pressure Location Left Arm Right Arm History Since Last Visit- (Skip if this is Patient's initial visit) Have you changed medications since your No No last visit? Any new allergies or adverse reactions No No Had a fall/change in ADL's that may No No increase risk of falls Signs or symptoms of abuse and/or No neglect since last visit Have you been in the hospital since your No last visit? Has dressing in place as prescribed Yes Has compression in place as prescribed N/A Has offloadiing in place as prescribed N/A Experienced any changes in pain level or No management Left Footwear Regular Shoe Right Footwear Regular Shoe Pain Scale: 0-10 Numeric Is Patient Pain Free? Yes Yes WC - Nurse 1 - General Ulcer Measurement Start: 07/07/24 10:36 Freq: Status: Active Protocol: Activity Type Activity Date Activity User E-sign Co-sign Detail Recorded Client Recorded Date Recorded By Document 07/07/24 10:36 KW [id number] 07/07/24 10:54 KW Document 07/14/24 15:14 [email or web address] [id number] 07/14/24 15:22 BM 07/07/24 07/14/24 10:36 15:14 Wound Center Nurse 1 #3 LT LAT GROIN -Current Size (cm) - Length 3.3 4.6 -Current Size (cm) - Width 1 1.2 -Current Size (cm) - Depth 0.4 0.2 -Total Square Cm 3.3 5.52 -Date of Last Picture (Recall this 07/07/24 field) -Epithelialization Medium 34-66% -Exudate Amt Small Medium -Exudate Type Serosanguineous Serosanguineous -Wound Margin Distinct, Outline Attached -Granulation Amt Medium (34-66%) Medium (34-66%) -Granulation Quality Red -Necrosis Amt Medium (34-66%) Small (1-33%) -Necrotic Tissue Type Adherent Slough Adherent Slough -Texture (Betty-wound Skin Appearance) Assessed Assessed -Moisture (Betty-wound Skin Appearance) Assessed Assessed -Color (Betty-wound Skin Appearance) Assessed Assessed -Temperature (Betty-wound Skin No Abnormality No Abnormality Appearance) (Pt Warm) (Pt Warm) -Tenderness on Palpation (Betty-wound No No Skin Appearance) -Ulcer Cleansing Soap and Water Soap and Water -Foul Odor after Cleansing No No -Anesthetic Used 5% Lidocaine 5% Lidocaine Gel Gel #2 LT MED GROIN -Current Size (cm) - Length 1.7 1.2 -Current Size (cm) - Width 0.8 0.6 -Current Size (cm) - Depth 0.4 0.1 -Total Square Cm 1.36 0.72 -Date of Last Picture (Recall this 07/07/24 field) -Exudate Amt Small Medium -Exudate Type Serosanguineous Serosanguineous -Wound Margin Distinct, Distinct, Outline Outline Attached Attached -Granulation Amt Large (67-100%) Medium (34-66%) -Granulation Quality Red -Slough/Fibrin Yes -Necrosis Amt Small (1-33%) Medium (34-66%) -Necrotic Tissue Type Adherent Slough Eschar -Texture (Betty-wound Skin Appearance) Assessed Assessed -Moisture (Betty-wound Skin Appearance) Assessed Assessed -Color (Betty-wound Skin Appearance) Assessed Assessed -Temperature (Betty-wound Skin No Abnormality No Abnormality Appearance) (Pt Warm) (Pt Warm) -Tenderness on Palpation (Betty-wound No No Skin Appearance) -Ulcer Cleansing Soap and Water Soap and Water -Foul Odor after Cleansing No No -Anesthetic Used 5% Lidocaine 5% Lidocaine Gel Gel #1 RT GROIN -Current Size (cm) - Length 5 4.6 -Current Size (cm) - Width 1 1.2 -Current Size (cm) - Depth 0.4 0.2 -Total Square Cm 5 5.52 -Date of Last Picture (Recall this 07/07/24 field) -Epithelialization Medium 34-66% -Exudate Amt Small Medium -Exudate Type Serosanguineous Serosanguineous -Wound Margin Distinct, Distinct, Outline Outline Attached Attached -Granulation Amt Small (1-33%) Medium (34-66%) -Granulation Quality Red -Slough/Fibrin Yes -Necrosis Amt Large (67-100%) Medium (34-66%) -Necrotic Tissue Type Adherent Slough Adherent Slough -Texture (Betty-wound Skin Appearance) Assessed Assessed -Moisture (Betty-wound Skin Appearance) Assessed Assessed -Color (Betty-wound Skin Appearance) Assessed Assessed -Temperature (Betty-wound Skin No Abnormality No Abnormality Appearance) (Pt Warm) (Pt Warm) -Tenderness on Palpation (Betty-wound No No Skin Appearance) -Ulcer Cleansing Soap and Water Soap and Water -Foul Odor after Cleansing No No -Anesthetic Used 5% Lidocaine 5% Lidocaine Gel Gel WC - Nurse 2 - General Ulcer CM Notes Start: 07/07/24 10:36 Freq: Status: Active Protocol: Activity Type Activity Date Activity User E-sign Co-sign Detail Recorded Client Recorded Date Recorded By Document 07/07/24 11:03 LOGAN [id number] 07/07/24 11:10 Document 07/14/24 15:40 [id number] 07/14/24 15:45 07/07/24 07/14/24 11:03 15:40 Wound Center Nurse 2 #3 LT LAT GROIN -Time 11: 15:40 -Correct Patient Yes Yes -Correct Side, Site, Position Yes Yes -Correct Procedure Yes Yes -Procedure Performed Yes Yes -Type of Procedure Debridement Debridement -Clinical Debridement Subcutaneous Subcutaneous -Tissue Removed Subcutaneous Subcutaneous -Post Debridement (cm) - Length 3.0 1.5 -Post Debridement (cm) - Width 1.2 3 -Post Debridement (cm) - Depth 0.2 0.2 -Total Square (Post) (cm) 3.60 4.5 -Area of Debridement (cm) - Length 3.0 1.5 -Area of Debridement (cm) - Width 1.2 3 -Total Square (Area) (cm) 3.60 4.5 -Tunneling No No -Undermining/Tunneling No No -Circular Undermining No No -Wound/Ulcer Outcome Not Healed Not Healed -Ulcer Cleansing Rinsed/ Rinsed/ Irrigated with Irrigated with Saline Saline -Foul Odor after Cleansing No No -Bioengineered Tissue No No -Bleeding Controlled with Pressure Pressure -Treatment Response Procedure Procedure Tolerated Well Tolerated Well -Offloading No No -Debridement - Subq, 1st 20sq cm No No #2 LT MED GROIN -Time 11: 15:41 -Correct Patient Yes Yes -Correct Side, Site, Position Yes Yes -Correct Procedure Yes Yes -Procedure Performed Yes Yes -Type of Procedure Debridement Debridement -Clinical Debridement Subcutaneous Subcutaneous -Tissue Removed Subcutaneous Subcutaneous -Post Debridement (cm) - Length 2.0 1.0 -Post Debridement (cm) - Width 1.4 1.0 -Post Debridement (cm) - Depth 0.4 0.2 -Total Square (Post) (cm) 2.80 1.00 -Area of Debridement (cm) - Length 2.0 1.0 -Area of Debridement (cm) - Width 1.4 1.0 -Total Square (Area) (cm) 2.80 1.00 -Tunneling No No -Undermining/Tunneling No No -Circular Undermining No No -Wound/Ulcer Outcome Not Healed Not Healed -Ulcer Cleansing Rinsed/ Rinsed/ Irrigated with Irrigated with Saline Saline -Foul Odor after Cleansing No No -Bioengineered Tissue No No -Bleeding Controlled with Pressure Pressure -Treatment Response Procedure Procedure Tolerated Well Tolerated Well -Offloading No No -Debridement - Subq, 1st 20sq cm No No #1 RT GROIN -Time 11:07 15:41 -Correct Patient Yes Yes -Correct Side, Site, Position Yes Yes -Correct Procedure Yes Yes -Procedure Performed Yes Yes -Type of Procedure Debridement Debridement -Clinical Debridement Subcutaneous Subcutaneous -Tissue Removed Subcutaneous Subcutaneous -Post Debridement (cm) - Length 5.0 1.5 -Post Debridement (cm) - Width 1.5 4.5 -Post Debridement (cm) - Depth 0.3 0.2 -Total Square (Post) (cm) 7.50 6.75 -Area of Debridement (cm) - Length 5.0 1.5 -Area of Debridement (cm) - Width 1.5 4.5 -Total Square (Area) (cm) 7.50 6.75 -Tunneling No No -Undermining/Tunneling No No -Circular Undermining No No -Wound/Ulcer Outcome Not Healed Not Healed -Ulcer Cleansing Rinsed/ Rinsed/ Irrigated with Irrigated with Saline Saline -Foul Odor after Cleansing No No -Bioengineered Tissue No No -Bleeding Controlled with Pressure Pressure -Treatment Response Procedure Procedure Tolerated Well Tolerated Well -Offloading No No -Debridement - Subq, 1st 20sq cm Yes Yes Pain Scale: 0-10 Numeric Is Patient Pain Free? Yes Yes - Nurse 3 - General Ulcer D/C NN Start: 07/07/24 10:36 Freq: Status: Active Protocol: Activity Type Activity Date Activity User E-sign Co-sign Detail Recorded Client Recorded Date Recorded By Document 07/07/24 11:31 KW [id number] 07/07/24 11:31 KW Document 07/14/24 15:58 DL [id number] 07/14/24 16:01 DL 07/07/24 07/14/24 11:31 15:58 Wound Care Center Nurse 3 #3 LT LAT GROIN -Ulcer Cleansing Soap and Water -Foul Odor after Cleansing No -Primary Dressing Applied Aquacel AG 4x4 Aquacel AG 4x4 -Primary Dressing Covered/Secured with Dry Gauze Dry Gauze, Secured with Tape -Aquacel AG 4x4 1 1 #2 LT MED GROIN -Ulcer Cleansing Rinsed/ Irrigated with Saline -Foul Odor after Cleansing No -Other Dressing aquacel ag aquacel AG -Primary Dressing Covered/Secured with Dry Gauze Dry Gauze, Secured with Tape #1 RT GROIN -Ulcer Cleansing Soap and Water -Foul Odor after Cleansing No -Other Dressing aquacel ag Aquacel AG -Primary Dressing Covered/Secured with Dry Gauze Dry Gauze, Secured with Tape Treatment Response Procedure Tolerated Well Pain Scale: 0-10 Numeric Is Patient Pain Free? Yes Yes WC - Visit Discharge Discharge Condition Stable Ambulatory Status Ambulatory Transportation Private Auto Assessment/Plan Assessment/Plan (1) Hidradenitis suppurativa: CODE(S): L73.2 - Hidradenitis suppurativa (2) Delayed surgical wound healing: CODE(S): T81.89XA - Other complications of procedures, not elsewhere classified, initial encounter PLAN: Plan She states she is doing well. Pain is controlled. Wound care - Aquacel-Ag daily and as needed covered with gauze. Wash the area daily with soap and water. Finished Augmentin, no signs of drainage or recurrence. Patient happy overall F/u in 2 weeks
--- NOTE | 2024-07-15 14:49 | WC ---
PHOTO 07/14/24 RIGHT GROIN
--- NOTE | 2024-07-15 14:51 | WC ---
PHOTO 07/14/24 LEFT GROIN/MEDIAL GROIN
[2024-07-28 14:18] VITALS: BP 121/76; PULSE 62; RESP 18; TEMP 36.6; BMI 26.6
--- NOTE | 2024-07-28 17:31 | PCM.WC.PN ---
History of Present Illness Date of Service: 07/28/24 Chief Complaint: Bilateral groin/proximal thigh wounds from hidradenitis excision History of Wound: 39 -year-old female who is otherwise healthy and has hidradenitis suppurativa (HS). She was referred to me by the [facility] dermatology team for evaluation of surgical management. She has been taking Cosentyx (secukinumab) for medical management of the HS, for which she just finished a 5-week course for the loading dose, and is now on her monthly dosing. She noted a 50% improvement with the Cosentyx as far. She is not on any chronic suppressive antibiotics. Of note when she was living in [place] her TIE MAKER performed 3 separate incision and drainage procedures of labial hidradenitis with significant improvement thereafter. Surgery 06/26/24 Right groin/thigh hidradenitis suppurativa excision, 6.5 x 2 cm and Left groin/thigh hidradenitis suppurativa excision, 3 x 1.5 cm and Left groin/thigh hidradenitis suppurativa excision, 4 x 1.5 cm and Placement of dermal substitute, 23.5 cm^2. She denies any fever, chill, nausea or vomiting. Progress of Wound: She states her pain is well controlled. She has been having some drainage from the wound on the right groin/thigh. She denies issues with her dressing changes. 14 Jul 2024: Doing well. Pain controlled since removal of the allograft. no drainage. Finished Abx. Happy she went through with the surgery. Current Encounter, 28 Jul 2024: Doing well. No new HS drainage or pockets. Healing in. Objective Data Objective Data Vital Signs: Vital Signs Temp Pulse Resp BP O2 Del Method 97.8 F 62 18 121/76 H Room Air 07/28/24 14:18 07/28/24 14:18 07/28/24 14:18 07/28/24 14:18 07/28/24 14:18 Oxygen Delivery Method Room Air Weight: 180 lb Body Mass Index (BMI) 26.6 Charges/Coding Procedures Integumentary 111xxx-113xx: [id number] Lauryn subq tissue 20 sq cm/< Physical Exam Narrative Wounds with beefy red base. Right groin is 2 x 0.5 cm , left lateral is 1 x 0.5cm , and left medial has healed. No drainage. No new HS lesions. Wounds are nice beefy pink color. Decreased depth. Female manufacturing millwright present for exam Debridement Note Debridement Note Wound debrided: Right and left groin wounds Laterality: Not Applicable Type of Debridement: Excisional debridement Anesthesia Used: 4% Lidocaine Solution Depth: Down to and including healthy tissue and in the subcutaneous layer Percentage of wound debrided: 100 Instrument Used: 7mm curette Severity: Fat Layer Exposed Amount of bleeding with debridement: None Bleeding Controlled with: Compression and gauze Patient tolerated procedure: Patient tolerated procedure well Post-Debridement Measurements and Additional Note: Post-Debridement Measurements/Treatment - Nurse 1 - General Ulcer Assessment Start: 07/07/24 10:36 Freq: Status: Active Protocol: XIN Activity Type Activity Date Activity User E-sign Co-sign Detail Recorded Client Recorded Date Recorded By Document 07/07/24 10:36 [id number] 07/07/24 10:54 KW Document 07/14/24 15:14 [facility] [id number] 07/14/24 15:22 [facility] Document 07/28/24 14:18 [id number] 07/28/24 14:28 07/07/24 07/14/24 07/28/24 10:36 15:14 14:18 - Today's Visit Information Type of service Follow-up Visit Follow-up Visit Follow-up Visit (Physician/SALES REPRESENTATIVE GROCERIES (Physician/SALES REPRESENTATIVE GROCERIES (Physician/SALES REPRESENTATIVE GROCERIES ) ) ) Arrival Mode Ambulatory Ambulatory Ambulatory Transfer Assistance None Patient Identification Verified (Name & Yes Yes Yes ) Patient Requires Transmission-Based No No Precautions Height and Weight Body Mass Index (BMI) 26.6 26.6 26.6 BMI Classification Overweight Overweight Overweight Vital Signs Temperature (97.8 F-99.1 F) 97.2 F L 98 F 97.8 F Temperature Source Temporal Temporal Temporal Pulse Rate (60-100) 75 67 62 Pulse Location Monitor Monitor Monitor Respiratory Rate (12-18) 18 15 18 Respiratory rate source Observation Observation Observation Oxygen Delivery Method Room Air Room Air Room Air Blood Pressure (90/60-120/80) 123/85 H 129/76 H 121/76 H Blood Pressure Mean (mm Hg) 97 93 91 Source Monitor Monitor Monitor Position Semi-Fowlers Sitting Sitting Blood Pressure Location Left Arm Right Arm Left Arm History Since Last Visit- (Skip if this is Patient's initial visit) Have you changed medications since your No No No last visit? Any new allergies or adverse reactions No No No Had a fall/change in ADL's that may No No No increase risk of falls Signs or symptoms of abuse and/or No No neglect since last visit Have you been in the hospital since your No No last visit? Has dressing in place as prescribed Yes Yes Has compression in place as prescribed N/A N/A Has offloadiing in place as prescribed N/A N/A Experienced any changes in pain level or No No management Left Footwear Regular Shoe Right Footwear Regular Shoe Pain Scale: 0-10 Numeric Is Patient Pain Free? Yes Yes Yes WC - Nurse 1 - General Ulcer Measurement Start: 07/07/24 10:36 Freq: Status: Active Protocol: Activity Type Activity Date Activity User E-sign Co-sign Detail Recorded Client Recorded Date Recorded By Document 07/07/24 10:36 KW [id number] 07/07/24 10:54 KW Document 07/14/24 15:14 [facility] [id number] 07/14/24 15:22 BM Document 07/28/24 14:18 [id number] 07/28/24 14:28 07/07/24 07/14/24 07/28/24 10:36 15:14 14:18 Wound Center Nurse 1 #2 LT MED GROIN -Current Size (cm) - Length 1.7 1.2 1.7 -Current Size (cm) - Width 0.8 0.6 1.2 -Current Size (cm) - Depth 0.4 0.1 0.1 -Total Square Cm 1.36 0.72 2.04 -Date of Last Picture (Recall this 07/07/24 field) -Photo Taken No -Epithelialization Small 1-33% -Tunneling No -Undermining/Tunneling No -Circular Undermining No -Exudate Amt Small Medium -Exudate Type Serosanguineous Serosanguineous Serosanguineous -Wound Margin Distinct, Distinct, Distinct, Outline Outline Outline Attached Attached Attached -Granulation Amt Large (67-100%) Medium (34-66%) Medium (34-66%) -Granulation Quality [place] -Slough/Fibrin Yes No -Necrosis Amt Small (1-33%) Medium (34-66%) -Necrotic Tissue Type Adherent Slough Eschar -Texture (Betty-wound Skin Appearance) Assessed Assessed Assessed -Moisture (Betty-wound Skin Appearance) Assessed Assessed Assessed -Color (Betty-wound Skin Appearance) Assessed Assessed Assessed -Temperature (Betty-wound Skin No Abnormality No Abnormality No Abnormality Appearance) (Pt Warm) (Pt Warm) (Pt Warm) -Tenderness on Palpation (Betty-wound No No No Skin Appearance) -Ulcer Cleansing Soap and Water Soap and Water Rinsed/ Irrigated with Saline -Foul Odor after Cleansing No No No -Anesthetic Used 5% Lidocaine 5% Lidocaine 5% Lidocaine Gel Gel Gel #3 LT LAT GROIN -Current Size (cm) - Length 3.3 4.6 2.0 -Current Size (cm) - Width 1 1.2 0.5 -Current Size (cm) - Depth 0.4 0.2 0.1 -Total Square Cm 3.3 5.52 1.00 -Date of Last Picture (Recall this 07/07/24 field) -Photo Taken No -Epithelialization Medium 34-66% Small 1-33% -Tunneling No -Undermining/Tunneling No -Circular Undermining No -Exudate Amt Small Medium Small -Exudate Type Serosanguineous Serosanguineous Serosanguineous -Wound Margin Distinct, Distinct, Outline Outline Attached Attached -Granulation Amt Medium (34-66%) Medium (34-66%) Medium (34-66%) -Granulation Quality [place] -Slough/Fibrin No -Necrosis Amt Medium (34-66%) Small (1-33%) -Necrotic Tissue Type Adherent Slough Adherent Slough -Texture (Betty-wound Skin Appearance) Assessed Assessed Assessed -Moisture (Betty-wound Skin Appearance) Assessed Assessed Assessed -Color (Betty-wound Skin Appearance) Assessed Assessed Assessed -Temperature (Betty-wound Skin No Abnormality No Abnormality No Abnormality Appearance) (Pt Warm) (Pt Warm) (Pt Warm) -Tenderness on Palpation (Betty-wound No No Skin Appearance) -Ulcer Cleansing Soap and Water Soap and Water Rinsed/ Irrigated with Saline -Foul Odor after Cleansing No No No -Anesthetic Used 5% Lidocaine 5% Lidocaine 5% Lidocaine Gel Gel Gel #1 RT GROIN -Current Size (cm) - Length 5 4.6 2.0 -Current Size (cm) - Width 1 1.2 0.4 -Current Size (cm) - Depth 0.4 0.2 0.1 -Total Square Cm 5 5.52 0.80 -Date of Last Picture (Recall this 07/07/24 field) -Photo Taken No -Epithelialization Medium 34-66% Small 1-33% -Tunneling No -Undermining/Tunneling No -Circular Undermining No -Exudate Amt Small Medium Small -Exudate Type Serosanguineous Serosanguineous Serosanguineous -Wound Margin Distinct, Distinct, Distinct, Outline Outline Outline Attached Attached Attached -Granulation Amt Small (1-33%) Medium (34-66%) Medium (34-66%) -Granulation Quality [place] -Slough/Fibrin Yes No -Necrosis Amt Large (67-100%) Medium (34-66%) None Present (0 %) -Necrotic Tissue Type Adherent Slough Adherent Slough -Texture (Betty-wound Skin Appearance) Assessed Assessed Assessed -Moisture (Betty-wound Skin Appearance) Assessed Assessed Assessed -Color (Betty-wound Skin Appearance) Assessed Assessed Assessed -Temperature (Betty-wound Skin No Abnormality No Abnormality No Abnormality Appearance) (Pt Warm) (Pt Warm) (Pt Warm) -Tenderness on Palpation (Betty-wound No No No Skin Appearance) -Ulcer Cleansing Soap and Water Soap and Water Rinsed/ Irrigated with Saline -Foul Odor after Cleansing No No No -Anesthetic Used 5% Lidocaine 5% Lidocaine 5% Lidocaine Gel Gel Gel WC - Nurse 2 - General Ulcer CM Notes Start: 07/07/24 10:36 Freq: Status: Active Protocol: Activity Type Activity Date Activity User E-sign Co-sign Detail Recorded Client Recorded Date Recorded By Document 07/07/24 11:03 [id number] 07/07/24 11:10 Document 07/14/24 15:40 JF [id number] 07/14/24 15:45 Document 07/28/24 14:54 [id number] 07/28/24 14:56 07/07/24 07/14/24 07/28/24 11:03 15:40 14:54 Wound Center Nurse 2 #2 LT MED GROIN -Time 11:04 15:41 -Correct Patient Yes Yes No -Correct Side, Site, Position Yes Yes No -Correct Procedure Yes Yes No -Procedure Performed Yes Yes No -Type of Procedure Debridement Debridement -Clinical Debridement Subcutaneous Subcutaneous -Tissue Removed Subcutaneous Subcutaneous -Post Debridement (cm) - Length 2.0 1.0 0 -Post Debridement (cm) - Width 1.4 1.0 0 -Post Debridement (cm) - Depth 0.4 0.2 0 -Total Square (Post) (cm) 2.80 1.00 0 -Area of Debridement (cm) - Length 2.0 1.0 0 -Area of Debridement (cm) - Width 1.4 1.0 0 -Total Square (Area) (cm) 2.80 1.00 0 -Tunneling No No -Undermining/Tunneling No No -Circular Undermining No No -Wound/Ulcer Outcome Not Healed Not Healed Healed- Epithelialized -Ulcer Cleansing Rinsed/ Rinsed/ Irrigated with Irrigated with Saline Saline -Foul Odor after Cleansing No No -Bioengineered Tissue No No -Bleeding Controlled with Pressure Pressure -Treatment Response Procedure Procedure Tolerated Well Tolerated Well -Offloading No No -Debridement - Subq, 1st 20sq cm No No #3 LT LAT GROIN -Time 11:04 15:40 14:55 -Correct Patient Yes Yes Yes -Correct Side, Site, Position Yes Yes Yes -Correct Procedure Yes Yes Yes -Procedure Performed Yes Yes Yes -Type of Procedure Debridement Debridement Debridement -Clinical Debridement Subcutaneous Subcutaneous Subcutaneous -Tissue Removed Subcutaneous Subcutaneous Subcutaneous -Post Debridement (cm) - Length 3.0 1.5 1.0 -Post Debridement (cm) - Width 1.2 3 0.5 -Post Debridement (cm) - Depth 0.2 0.2 0.1 -Total Square (Post) (cm) 3.60 4.5 0.50 -Area of Debridement (cm) - Length 3.0 1.5 1.0 -Area of Debridement (cm) - Width 1.2 3 0.5 -Total Square (Area) (cm) 3.60 4.5 0.50 -Tunneling No No No -Undermining/Tunneling No No No -Circular Undermining No No No -Wound/Ulcer Outcome Not Healed Not Healed Not Healed -Ulcer Cleansing Rinsed/ Rinsed/ Rinsed/ Irrigated with Irrigated with Irrigated with Saline Saline Saline -Foul Odor after Cleansing No No No -Bioengineered Tissue No No No -Bleeding Controlled with Pressure Pressure Pressure -Treatment Response Procedure Procedure Procedure Tolerated Well Tolerated Well Tolerated Well -Offloading No No No -Debridement - Subq, 1st 20sq cm No No No #1 RT GROIN -Time 11:07 15:41 14:55 -Correct Patient Yes Yes Yes -Correct Side, Site, Position Yes Yes Yes -Correct Procedure Yes Yes Yes -Procedure Performed Yes Yes Yes -Type of Procedure Debridement Debridement Debridement -Clinical Debridement Subcutaneous Subcutaneous Subcutaneous -Tissue Removed Subcutaneous Subcutaneous Subcutaneous -Post Debridement (cm) - Length 5.0 1.5 2.0 -Post Debridement (cm) - Width 1.5 4.5 0.5 -Post Debridement (cm) - Depth 0.3 0.2 0.1 -Total Square (Post) (cm) 7.50 6.75 1.00 -Area of Debridement (cm) - Length 5.0 1.5 2.0 -Area of Debridement (cm) - Width 1.5 4.5 0.5 -Total Square (Area) (cm) 7.50 6.75 1.00 -Tunneling No No No -Undermining/Tunneling No No No -Circular Undermining No No No -Wound/Ulcer Outcome Not Healed Not Healed Not Healed -Ulcer Cleansing Rinsed/ Rinsed/ Rinsed/ Irrigated with Irrigated with Irrigated with Saline Saline Saline -Foul Odor after Cleansing No No No -Bioengineered Tissue No No No -Bleeding Controlled with Pressure Pressure Pressure -Treatment Response Procedure Procedure Procedure Tolerated Well Tolerated Well Tolerated Well -Offloading No No No -Debridement - Subq, 1st 20sq cm Yes Yes Yes Pain Scale: 0-10 Numeric Is Patient Pain Free? Yes Yes Yes WC - Nurse 3 - General Ulcer D/C NN Start: 07/07/24 10:36 Freq: Status: Active Protocol: Activity Type Activity Date Activity User E-sign Co-sign Detail Recorded Client Recorded Date Recorded By Document 07/07/24 11:31 KW [id number] 07/07/24 11:31 KW Document 07/14/24 15:58 DL [id number] 07/14/24 16:01 DL Document 07/28/24 15:13 [id number] 07/28/24 15:17 07/07/24 07/14/24 07/28/24 11:31 15:58 15:13 Wound Care Center Nurse 3 #2 LT MED GROIN -Ulcer Cleansing Rinsed/ Irrigated with Saline -Foul Odor after Cleansing No -Other Dressing aquacel ag aquacel AG -Primary Dressing Covered/Secured with Dry Gauze Dry Gauze, Secured with Tape #3 LT LAT GROIN -Ulcer Cleansing Soap and Water Not Cleansed -Foul Odor after Cleansing No No -Primary Dressing Applied Aquacel AG 4x4 Aquacel AG 4x4 Aquacel AG 4x4 -Primary Dressing Covered/Secured with Dry Gauze Dry Gauze, Dry Gauze, Secured with Secured with Tape Tape -Aquacel AG 4x4 1 1 1 #1 RT GROIN -Ulcer Cleansing Soap and Water Not Cleansed -Foul Odor after Cleansing No No -Other Dressing aquacel ag Aquacel AG -Primary Dressing Covered/Secured with Dry Gauze Dry Gauze, Dry Gauze, Secured with Secured with Tape Tape Treatment Response Procedure Tolerated Well Pain Scale: 0-10 Numeric Is Patient Pain Free? Yes Yes Yes WC - Visit Discharge Discharge Condition Stable Stable Ambulatory Status Ambulatory Ambulatory Transportation Private Auto Private Auto Assessment/Plan Assessment/Plan (1) Hidradenitis suppurativa: CODE(S): L73.2 - Hidradenitis suppurativa (2) Delayed surgical wound healing: CODE(S): T81.89XA - Other complications of procedures, not elsewhere classified, initial encounter PLAN: Plan Continue daily dressings. Expected course. F/u in 2 weeks.
== END 2024-08-05 23:59 | disposition home or self-care (01) ==
LOC: WC 14:00
PROVIDERS: Referring Provider Surgery Plastic and Reconstructive Surgery; Visit Provider Surgery Plastic and Reconstructive Surgery
DX: T81.89XA Other complications of procedures, not elsewhere classified, initial encounter (principal); L73.2 Hidradenitis suppurativa; Z79.899 Other long term (current) drug therapy
CPT/HCPCS: 11042

== ENCOUNTER 2024-08-11 14:59 | Outpatient (RCR) | payer OTHER, SELFPAY ==
[2024-08-06 00:42] VITALS: BP 111/56; PULSE 67; RESP 18; TEMP 36.5; BMI 26.6
[2024-08-11 15:08] VITALS: BP 109/72; PULSE 77; RESP 18; TEMP 36.3; BMI 26.6
--- NOTE | 2024-08-11 16:37 | PN.PCM_ITS ---
History of Present Illness Date of Service: 08/11/24 Chief Complaint: Bilateral groin/proximal thigh wounds from hidradenitis e xcision History of Wound: 39 -year-old female who is otherwise healthy and has hidradenitis suppurativa (HS). She was referred to me by the [facility] dermatology team for evaluation of surgical management. She has been taking Cosentyx (secukinumab) for medical management of the HS, for which she just finished a 5-week course for the loading dose, and is now on her monthly dosing. She noted a 50% improvement with the Cosentyx as far. She is not on any chronic suppressive antibiotics. Of note when she was living in [place] her TELEGRAPHIC TYPEWRITER INSTALLER performed 3 separate incision and drainage procedures of labial hidradenitis with significant improvement thereafter. Surgery 06/26/24 Right groin/thigh hidradenitis suppurativa excision, 6.5 x 2 cm and Left groin/thigh hidradenitis suppurativa excision, 3 x 1.5 cm and Left groin/thigh hidradenitis suppurativa excision, 4 x 1.5 cm and Placement of dermal substitute, 23.5 cm^2. She denies any fever, chill, nausea or vomiting. Subjective Subjective 14 Jul 2024: Doing well. Pain controlled since removal of the allograft. no drainage. Finished Abx. Happy she went through with the surgery. 28 Jul 2024: Doing well. No new HS drainage or pockets. Healing in. Current Encounter, 11 Aug 2024: Doing well. Believes she is healed. No new HS pockets. 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 No signs of HS. No drainage. Scars acceptable/without hypertrophy or pull. Debridement Note Debridement Note No debridement was completed: No debridement was completed today Post-Debridement Measurements and Additional Note: Post-Debridement Measurements/Treatment WC - Nurse 1 - General Ulcer Assessment Start: 08/11/24 15:08 Freq: Status: Active Protocol: XIN Activity Type Activity Date Activity User E-sign Co-sign Detail Recorded Client Recorded Date Recorded By Document 08/11/24 15:08 CLARI [id number] 08/11/24 15:16 KW 08/11/24 15:08 - Today's Visit Information Type of service Follow-up Visit (Physician/MASS COMMUNICATIONS PROFESSOR ) Arrival Mode Ambulatory Patient Identification Verified (Name & Yes ) Height and Weight Body Mass Index (BMI) 26.6 BMI Classification Overweight Vital Signs Temperature (97.8 F-99.1 F) 97.4 F L Temperature Source Temporal Pulse Rate (60-100) 77 Pulse Location Monitor Respiratory Rate (12-18) 18 Respiratory rate source Observation Oxygen Delivery Method Room Air Blood Pressure (90/60-120/80) 109/72 Blood Pressure Mean (mm Hg) 84 Source Monitor Position Sitting Blood Pressure Location Right Arm History Since Last Visit- (Skip if this is Patient's initial visit) Have you changed medications since your No last visit? Any new allergies or adverse reactions No Had a fall/change in ADL's that may No increase risk of falls Signs or symptoms of abuse and/or No neglect since last visit Have you been in the hospital since your No last visit? Has dressing in place as prescribed Yes Has compression in place as prescribed N/A Has offloadiing in place as prescribed N/A Experienced any changes in pain level or No management Left Footwear Regular Shoe Right Footwear Regular Shoe Pain Scale: 0-10 Numeric Is Patient Pain Free? Yes - Nurse 1 - General Ulcer Measurement Start: 08/11/24 15:08 Freq: Status: Active Protocol: Activity Type Activity Date Activity User E-sign Co-sign Detail Recorded Client Recorded Date Recorded By Document 08/11/24 15:08 KW [id number] 08/11/24 15:16 08/11/24 15:08 Wound Center Nurse 1 #3 LT LAT GROIN -Current Size (cm) - Length 0 -Current Size (cm) - Width 0 -Total Square Cm 0 -Epithelialization Large 67-100% -Exudate Amt None Present -Texture (Betty-wound Skin Appearance) Assessed -Moisture (Betty-wound Skin Appearance) Assessed -Color (Betty-wound Skin Appearance) Assessed -Temperature (Betty-wound Skin No Abnormality Appearance) (Pt Warm) -Tenderness on Palpation (Betty-wound No Skin Appearance) #1 RT GROIN -Current Size (cm) - Length 0 -Current Size (cm) - Width 0 -Total Square Cm 0 -Date of Last Picture (Recall this 08/11/24 field) -Epithelialization Large 67-100% -Exudate Amt None Present -Texture (Betty-wound Skin Appearance) Assessed -Moisture (Betty-wound Skin Appearance) Assessed -Color (Betty-wound Skin Appearance) Assessed -Temperature (Betty-wound Skin No Abnormality Appearance) (Pt Warm) -Tenderness on Palpation (Betty-wound No Skin Appearance) -Ulcer Cleansing Rinsed/ Irrigated with Saline ADAL - Nurse 2 - General Ulcer CM Notes Start: 08/11/24 15:08 Freq: Status: Active Protocol: Activity Type Activity Date Activity User E-sign Co-sign Detail Recorded Client Recorded Date Recorded By Document 08/11/24 15:36 LOGAN [id number] 08/11/24 15:37 08/11/24 15:36 Wound Center Nurse 2 #3 LT LAT GROIN -Correct Patient Yes -Correct Side, Site, Position No -Correct Procedure No -Procedure Performed No -Post Debridement (cm) - Length 0 -Post Debridement (cm) - Width 0 -Post Debridement (cm) - Depth 0 -Total Square (Post) (cm) 0 -Area of Debridement (cm) - Length 0 -Area of Debridement (cm) - Width 0 -Total Square (Area) (cm) 0 -Wound/Ulcer Outcome Healed- Epithelialized #1 RT GROIN -Correct Patient Yes -Correct Side, Site, Position No -Correct Procedure No -Procedure Performed No -Post Debridement (cm) - Length 0 -Post Debridement (cm) - Width 0 -Post Debridement (cm) - Depth 0 -Total Square (Post) (cm) 0 -Area of Debridement (cm) - Length 0 -Area of Debridement (cm) - Width 0 -Total Square (Area) (cm) 0 -Wound/Ulcer Outcome Healed- Epithelialized Pain Scale: 0-10 Numeric Is Patient Pain Free? Yes ADAL - Nurse 3 - General Ulcer D/C NN Start: 08/11/24 15:08 Freq: Status: Active Protocol: Activity Type Activity Date Activity User E-sign Co-sign Detail Recorded Client Recorded Date Recorded By Document 08/11/24 15:37 LOGAN [id number] 08/11/24 15:38 JF 08/11/24 15:37 Is Patient Pain Free? Yes WC - Visit Discharge Discharge Condition Stable Ambulatory Status Ambulatory Transportation Private Auto Medication Reconcilliation completed & Yes provided to patient/care provider Clinical Summary of Care Provided Yes Assessment/Plan Assessment/Plan (1) Hidradenitis suppurativa: CODE(S): L73.2 - Hidradenitis suppurativa PLAN: Plan Healed. Discussed scar care and return as needed for scar problems or HS return F/u PRN
== END 2024-09-03 13:20 | disposition home or self-care (01) ==
LOC: WC 14:59
PROVIDERS: Referring Provider Surgery Plastic and Reconstructive Surgery; Visit Provider Surgery Plastic and Reconstructive Surgery
DX: Z09 Encounter for follow-up examination after completed treatment for conditions other than malignant neoplasm (principal); L73.2 Hidradenitis suppurativa; Z79.899 Other long term (current) drug therapy
CPT/HCPCS: 99213; G0463